=== PATIENT | female | born 1960 | race Two or more races ===

== ENCOUNTER 2023-04-27 14:49 | Emergency (ER) | payer OTHER ==
[~2023-04-27] VITALS: Ht 149.9 cm; Wt 81.4 kg
[2023-04-27 17:10] VITALS: PULSE 75; RESP 16; TEMP 98.2; O2SAT 95
[2023-04-27] MEDS ORDERED: AMOX500C2 PO (18:51)
== END 2023-04-27 18:51 | disposition home or self-care (01) ==
LOC: ER 14:49
DX: L04.0 Acute lymphadenitis of face, head and neck (principal); J03.90 Acute tonsillitis, unspecified; E07.9 Disorder of thyroid, unspecified; Z79.899 Other long term (current) drug therapy
CPT/HCPCS: 70490; 82962